=== PATIENT | female | born 1960 | race Caucasian/White ===

== ENCOUNTER 2022-08-21 11:31 | Emergency (ER) | payer SELFPAY | END 2022-08-21 13:10 | disposition left against medical advice (07) | LOC: DL.ED 11:31 | DX: Z53.21 Procedure and treatment not carried out due to patient leaving prior to being seen by health care provider (principal) ==

== ENCOUNTER 2022-09-14 12:57 | Emergency (ER) | payer BC ==
[2022-09-14] MEDS: Sodium Chloride 0.9% 10 ML Syringe FLUSH PRN ×2 (13:44→15:28)
[2022-09-14] MEDS ORDERED: HYDROmorphone 0.5 MG/0.5 ML Syringe IVPUSH ONE ×2 (13:44→15:16)
[2022-09-14] MEDS ORDERED: Sodium Chloride 0.9% 1,000 ML IV ONE (13:44)
[2022-09-14] MEDS ORDERED: Ondansetron 4 MG/2 ML SDV IVPUSH ONE (13:44)
[2022-09-14 14:17] LABS: ANION GAP 14.2 mEq/L (7-13)
[2022-09-14] MEDS ORDERED: Ketamine 500 mg/10 ML MDV IV ONE (14:47)
== END 2022-09-14 16:49 ==
LOC: DL.ED 12:57
DX: C34.01 Malignant neoplasm of right main bronchus (principal); J98.8 Other specified respiratory disorders; I10 Essential (primary) hypertension; Z87.891 Personal history of nicotine dependence
CPT/HCPCS: 36415; 71045; 80053; 83605; 83615; 83735; 84443; 85025; 85610; 86140; 96361; 96374; 96375; 96376; 99285; 99285-25; J1170; J2405; J3490; J7030

== ENCOUNTER 2022-10-28 20:01 | Emergency (ER) | payer BC ==
[2022-10-28] MEDS ORDERED: Albuterol/Ipratropium 3.0-0.5 MG/3 ML Neb Soln NEB ONE (20:57)
[2022-10-28 21:16] LABS: HEMATOCRIT 22.9 % (37.0-47.0); HEMOGLOBIN 7.3 g/dL (12.0-16.0); MEAN CORPUSCULAR HEMOGLOBIN 31.6 pg (27.0-34.0); MEAN CORPUSCULAR HGB CONC 31.9 g/dL (33.0-35.0); MEAN CORPUSCULAR VOLUME 99.1 fL (80-100); PLATELET COUNT,PLT 233 10^3/uL (150-450); RED BLOOD CELL COUNT 2.31 10^6/uL (4.2-5.4); WHITE BLOOD CELL COUNT,WBC 8.9 10^3/uL (5.0-10.0)
[2022-10-28 21:29] LABS: BASOPHILS PERCENT AUTO 0.1 % (0.0-1.0); EOSINOPHILS PERCENT AUTO 0.1 % (1.0-3.0); LYMPHOCYTES PERCENT AUTO 16.5 % (20.5-50.1); MONOCYTES PERCENT AUTO 13.1 % (2-8); NEUTROPHILS PERCENT AUTO 70.2 % (42.2-75.2)
[2022-10-28 21:33] LABS: ALANINE AMINOTRANSFERASE,ALT 38 U/L (14-59); ALBUMIN 2.5 g/dL (3.4-5.0); ALKALINE PHOSPHATASE 93 U/L (46-116); ASPARTATE AMNIOTRANSFERASE,AST 28 U/L (15-37); BILIRUBIN TOTAL 0.2 mg/dL (0.2-1.0); BLOOD UREA NITROGEN,BUN 14 mg/dL (7-18); BUN/CREATININE RATIO 17.5 (No establ ref range); CALCIUM 8.8 mg/dL (8.5-10.1); CARBON DIOXIDE,CO2 25 mmol/L (21-32); CHLORIDE,CL 103 mmol/L (98-107); GLUCOSE RANDOM 122 mg/dL (70-99); PROTEIN TOTAL,TP 6.3 g/dL (6.4-8.2); SODIUM,NA 138 mmol/L (136-145)
[2022-10-28 21:35] LABS: A/G RATIO 0.66; ESTIMATED GFR 84 mL/min (>=60)
[2022-10-28 21:42] LABS: LYMPHOCYTES PERCENT MAN 16 % (20-50); MONOCYTES PERCENT MAN 15 % (2-8); SEG NEUTROPHILS PERCENT MAN 69 % (42-75)
[2022-10-28] MEDS ORDERED: HYDROmorphone 1 MG/ML Syringe IVPUSH ONE (21:42)
[2022-10-28] MEDS: Sodium Chloride 0.9% 10 ML Syringe FLUSH PRN ×2 (21:51→23:11)
[2022-10-28] MEDS ORDERED: Azithromycin 500 MG in Sodium Chloride 0.9% 250 ML IV ONE (22:56)
[2022-10-28] MEDS ORDERED: cefTRIAXone 2 GM Vial IVPUSH ONE (22:56)
[2022-10-29] MEDS ORDERED: Albuterol/Ipratropium 3.0-0.5 MG/3 ML Neb Soln NEB ONE (00:49)
[2022-10-29] MEDS ORDERED: predniSONE 20 MG Tab PO ONE (01:21)
[2022-10-29] MEDS ORDERED: Take Home: Azithromycin 250 MG, 2 Tab Pack PO ONE (01:22)
[2022-10-29] MEDS ORDERED: Take Home: predniSONE 20 MG, 4 Tab Pack PO ONE (01:23)
== END 2022-10-29 02:08 | disposition home or self-care (01) ==
LOC: DL.ED 20:01
DX: J98.8 Other specified respiratory disorders (principal); J18.9 Pneumonia, unspecified organism; C34.01 Malignant neoplasm of right main bronchus; I10 Essential (primary) hypertension; Z79.899 Other long term (current) drug therapy
CPT/HCPCS: 36415; 71046; 80053; 85025; 86140; 94640; 96365; 96375; 99285; A9270; J0456; J0696; J1170; J7050; J7512; 93010; J3490; J7620-GY

== ENCOUNTER 2022-11-13 16:18 | Emergency (ER) | payer BC ==
[2022-11-13] MEDS ORDERED: Sodium Chloride 0.9% 10 ML Syringe FLUSH PRN (16:26)
[2022-11-13] MEDS ORDERED: Dexamethasone 4 MG/ML SDV IVPUSH ONE (16:26)
[2022-11-13] MEDS ORDERED: LORazepam 2 MG/ML SDV IVPUSH ONE ×2 (16:27→18:19)
[2022-11-13] MEDS ORDERED: Albuterol/Ipratropium 3.0-0.5 MG/3 ML Neb Soln NEB ONE (16:28)
[2022-11-13] MEDS ORDERED: Sodium Chloride 0.9% 500 ML IV SCH (16:30)
[2022-11-13 17:02] LABS: HEMATOCRIT 29.7 % (37.0-47.0); HEMOGLOBIN 9.4 g/dL (12.0-16.0); MEAN CORPUSCULAR HEMOGLOBIN 31.5 pg (27.0-34.0); MEAN CORPUSCULAR HGB CONC 31.6 g/dL (33.0-35.0); MEAN CORPUSCULAR VOLUME 99.7 fL (80-100); PLATELET COUNT,PLT 648 10^3/uL (150-450); RED BLOOD CELL COUNT 2.98 10^6/uL (4.2-5.4); WHITE BLOOD CELL COUNT,WBC 16.6 10^3/uL (5.0-10.0)
[2022-11-13 17:15] LABS: BASOPHILS PERCENT AUTO 0.3 % (0.0-1.0); EOSINOPHILS PERCENT AUTO 0.5 % (1.0-3.0); LYMPHOCYTES PERCENT AUTO 9.2 % (20.5-50.1); MONOCYTES PERCENT AUTO 11.3 % (2-8); NEUTROPHILS PERCENT AUTO 78.7 % (42.2-75.2)
[2022-11-13 17:19] LABS: EOSINOPHILS PERCENT MAN 1 % (1-3); LYMPHOCYTES PERCENT MAN 10 % (20-50); MONOCYTES PERCENT MAN 5 % (2-8); SEG NEUTROPHILS PERCENT MAN 84 % (42-75)
[2022-11-13 17:20] LABS: ALANINE AMINOTRANSFERASE,ALT 21 U/L (14-59); ALBUMIN 3.2 g/dL (3.4-5.0); ALKALINE PHOSPHATASE 91 U/L (46-116); ASPARTATE AMNIOTRANSFERASE,AST 55 U/L (15-37); BILIRUBIN TOTAL 0.3 mg/dL (0.2-1.0); BLOOD UREA NITROGEN,BUN 18 mg/dL (7-18); BUN/CREATININE RATIO 17.5 (No establ ref range); CALCIUM 9.2 mg/dL (8.5-10.1); CARBON DIOXIDE,CO2 24 mmol/L (21-32); CHLORIDE,CL 101 mmol/L (98-107); CREATININE 1.03 mg/dL (0.55-1.02); GLUCOSE RANDOM 113 mg/dL (70-99); PROTEIN TOTAL,TP 6.9 g/dL (6.4-8.2); SODIUM,NA 135 mmol/L (136-145)
[2022-11-13 17:21] LABS: A/G RATIO 0.86; ESTIMATED GFR 62 mL/min (>=60)
[2022-11-13] MEDS ORDERED: Iopamidol 612 MG/ML 100 ML Bottle IVPUSH ONE (17:32)
[2022-11-13] MEDS ORDERED: Piperacillin/Tazobactam 3.375 GM in Sodium Chloride 0.9% 100 ML IV ONE (18:32)
== END 2022-11-13 19:22 ==
LOC: DL.ED 16:18
DX: C34.00 Malignant neoplasm of unspecified main bronchus (principal); J18.9 Pneumonia, unspecified organism; I10 Essential (primary) hypertension; Z79.899 Other long term (current) drug therapy
CPT/HCPCS: 36415; 70491; 71260; 80053; 85025; 87040; 96361; 96374; 96375; 96376; 99285; 99285-25; J1100; J2060; J2543; J3490; J7040; J7620-GY; Q9967

== ENCOUNTER 2023-01-24 10:41 | Emergency (ER) | payer BC ==
[2023-01-24] MEDS ORDERED: Albuterol/Ipratropium 3.0-0.5 MG/3 ML Neb Soln ONE (11:10)
[2023-01-24] MEDS ORDERED: HYDROmorphone 1 MG/ML Syringe IVPUSH ONE (11:16)
[2023-01-24] MEDS ORDERED: Naloxone 2 MG/2 ML Syringe IVPUSH PRN (11:16)
[2023-01-24] MEDS ORDERED: Albuterol 6.7 GM Inhaler INH ONE (11:26)
[2023-01-24 11:27] LABS: HEMATOCRIT 25.1 % (37.0-47.0); LYMPHOCYTES PERCENT AUTO 66.7 % (20.5-50.1); MEAN CORPUSCULAR HEMOGLOBIN 32.4 pg (27.0-34.0); MEAN CORPUSCULAR HGB CONC 31.9 g/dL (33.0-35.0); MEAN CORPUSCULAR VOLUME 101.6 fL (80-100); MONOCYTES PERCENT AUTO 8.3 % (2-8); PLATELET COUNT,PLT 75 10^3/uL (150-450); RED BLOOD CELL COUNT 2.47 10^6/uL (4.2-5.4)
[2023-01-24] MEDS ORDERED: predniSONE 20 MG Tab PO ONE (11:27)
[2023-01-24 11:46] LABS: ALANINE AMINOTRANSFERASE,ALT 58 U/L (14-59); ALBUMIN 1.9 g/dL (3.4-5.0); ALKALINE PHOSPHATASE 70 U/L (46-116); ANION GAP 26.2 mEq/L (7-13); ASPARTATE AMNIOTRANSFERASE,AST 55 U/L (15-37); BILIRUBIN TOTAL 0.4 mg/dL (0.2-1.0); BLOOD UREA NITROGEN,BUN 47 mg/dL (7-18); BUN/CREATININE RATIO 16.8 (No establ ref range); CALCIUM 9.7 mg/dL (8.5-10.1); CARBON DIOXIDE,CO2 20 mmol/L (21-32); CHLORIDE,CL 94 mmol/L (98-107); CREATININE 2.79 mg/dL (0.55-1.02); GLUCOSE RANDOM 130 mg/dL (70-99); MAGNESIUM 1.7 mg/dL (1.8-2.4); POTASSIUM,K 4.2 mmol/L (3.5-5.1); PROTEIN TOTAL,TP 6.1 g/dL (6.4-8.2); SODIUM,NA 136 mmol/L (136-145); WHITE BLOOD CELL COUNT,WBC 0.2 10^3/uL (5.0-10.0)
[2023-01-24 11:49] LABS: A/G RATIO 0.45; ESTIMATED GFR 19 mL/min (>=60); LIPASE < 10 U/L (73-393)
== END 2023-01-24 13:37 | disposition expired ==
LOC: DL.ED 10:41
DX: R06.02 Shortness of breath (principal); I10 Essential (primary) hypertension
CPT/HCPCS: 36415; 80053; 83605; 83690; 83735; 85025; 87040; 87186; 96374; 99285; J1170; J7620-GY